=== PATIENT | male | born 1965 ===

== ENCOUNTER 2021-04-04 18:41 | Emergency (ER) | payer BC ==
[~2021-04-04] VITALS: Ht 177.8 cm; Wt 68.0 kg
[2021-04-04 19:30] LABS: BASOPHILS # (AUTO) 0.1 X10'3 (0-0.2); BASOPHILS % (AUTO) 0.6 % (0-1); EOSINOPHILS # (AUTO) 0.1 X10'3 (0-0.9); EOSINOPHILS % (AUTO) 1.3 % (0-6); HEMATOCRIT 32.1 % (42.0-52.0); HEMOGLOBIN 10.7 g/dl (14.0-17.9); LYMPHOCYTES % (AUTO) 19.9 % (21-51); MEAN CORPUSCULAR HEMOGLOBIN 31.7 PG (27.0-31.0); MEAN CORPUSCULAR HGB CONC 33.4 g/dL (33.0-36.5); MEAN PLATELET VOLUME 6.8 FL (7.4-10.4); MONOCYTES % (AUTO) 9.7 % (2-12); NEUTROPHILS % (AUTO) 68.5 % (42-75); PLATELET COUNT 138 X10'3 (140-440); RED BLOOD COUNT 3.38 X10'6 (4.70-6.10); RED CELL DISTRIBUTION WIDTH 21.9 % (11.5-14.5); WHITE BLOOD COUNT 10.2 X10'3 (4.5-11.0)
[2021-04-04] MEDS ORDERED: normal saline 1000ml 1,000 ML IV ONE (19:30)
[2021-04-04 19:47] LABS: ALANINE AMINOTRANSFERASE 33 U/L (12-78); ALBUMIN 2.7 G/DL (3.4-5.0); ALBUMIN/GLOBULIN RATIO 0.6 (1.1-1.5); ALKALINE PHOSPHATASE 321 IU/L (46-116); ANION GAP 7 (8-16); ASPARTATE AMINO TRANSFERASE 41 U/L (10-37); BILIRUBIN,TOTAL 1.3 MG/DL (0.1-1.0); BLOOD UREA NITROGEN 11 MG/DL (7-18); BUN/CREATININE RATIO 10.8 (5.4-32.0); CALCIUM 8.2 MG/DL (8.5-10.1); CHLORIDE 106 MMOL/L (99-107); CREATININE 1.02 MG/DL (0.60-1.10); GLUCOSE 80 MG/DL (70-104); POTASSIUM 3.7 MMOL/L (3.5-5.1); SODIUM 139 MMOL/L (135-145); TOTAL CARBON DIOXIDE 25.6 MMOL/L (24-32); TOTAL PROTEIN 7.4 G/DL (6.4-8.2); eGFR 76 ML/MIN
[2021-04-04 21:40] LABS: PLATELET ESTIMATE DECREASED
[2021-04-04 21:41] LABS: ANISOCYTOSIS 3+; TEAR DROP CELLS 1+
[2021-04-04 21:43] LABS: POIKILOCYTOSIS 1+; POLYCHROMASIA FEW
[2021-04-04 21:46] VITALS: BP 111/73
== END 2021-04-04 21:48 | disposition home or self-care (01) ==
LOC: ER 18:41
DX: E86.0 Dehydration (principal); Z20.822 Contact with and (suspected) exposure to COVID-19; R51.9 Headache, unspecified; J02.9 Acute pharyngitis, unspecified; J43.9 Emphysema, unspecified; R19.7 Diarrhea, unspecified; R11.0 Nausea; R09.81 Nasal congestion; Z85.040 Personal history of malignant carcinoid tumor of rectum
CPT/HCPCS: 36415; 71045; 80053; 84484; 85008; 85025; 87635; 93005; 99285; C9803; J7030

== ENCOUNTER 2021-04-05 11:11 | Emergency (ER) | payer BC ==
[~2021-04-05] VITALS: Ht 177.8 cm; Wt 68.2 kg
[2021-04-05 11:51] VITALS: BP 110/79
== END 2021-04-05 17:08 | disposition left against medical advice (07) ==
LOC: ER 11:13
DX: R00.2 Palpitations (principal); Z53.21 Procedure and treatment not carried out due to patient leaving prior to being seen by health care provider
CPT/HCPCS: 93005